=== PATIENT | female | born 1965 | race Two or more races ===

== ENCOUNTER 2018-01-31 08:10 | Day surgery (SDC) | payer OTHER ==
[~2018-01-31 08:10] MED LIST: ABILIFY10 MG; ATIVAN1 MG; CLONAZEPAM1 MG PO; DULCOLAX5 MG PO; FLEXERIL10 MG PO; IBUPROFEN800 MG PO; LITHIUM CARBON300 M1; NABUMETONE750 MG PO; ORPH100T PO; PROSOM; RESTORIL30 MG; SEROQUEL200 MG PO; SEROQUEL400 MG PO; SYNTHROID100 MCG; TIROSINT100 MCG PO; TRAMADOL HCL50 MG PO; WELLBUTRIN100 MG; [UNRECOGNIZED DRUG - OTHER] PO
== END 2018-01-31 14:30 | disposition home or self-care (01) ==
LOC: CIR.AMB 08:10
DX: L98.7 Excessive and redundant skin and subcutaneous tissue (principal)

== ENCOUNTER 2018-07-07 23:37 | Emergency (ER) | payer OTHER ==
[~2018-07-07] VITALS: Ht 165.1 cm; Wt 74.4 kg
== END 2018-07-08 18:08 | disposition home or self-care (01) ==
LOC: ER 23:37
DX: K59.09 Other constipation (principal); E88.1 Lipodystrophy, not elsewhere classified; K56.7 Ileus, unspecified